=== PATIENT | male | born 1995 | race Caucasian/White ===

== ENCOUNTER 2018-04-19 22:03 | Emergency (ER) | payer SELFPAY ==
[~2018-04-19] VITALS: Ht 177.8 cm; Wt 72.0 kg
[2018-04-19] MEDS ORDERED: MORPHINE SULFATE 4 MG/ML CPJ (NOT FOR IM USE) IV ONE (22:30)
[2018-04-19] MEDS ORDERED: ONDANSETRON HCL 4MG/2ML VIAL IV ONE (22:30)
[2018-04-19] MEDS ORDERED: TETANUS, DIPHTHERIA, PERTUSSIS VAC/PF 0.5ML (>7YR OLD) IM ONE (22:30)
[2018-04-19] MEDS ORDERED: BACITRACIN ZINC OINT UDPKT TOP ONE (22:30)
[2018-04-19] MEDS ORDERED: LIDOCAINE HCL 1% 20ML VIAL (Pyxis) INJ MC ONE (22:30)
[2018-04-19] MEDS ORDERED: CEFAZOLIN 1000MG PREMIX 50 ML IV ONE (22:30)
[2018-04-19] MEDS ORDERED: LIDOCAINE HCL/PF 1% 10 MG/ML 5ML VIAL IJ SCH (22:38)
[2018-04-20] MEDS ORDERED: HYDROCODONE/ACETAMINOPHEN 5/325MG TABLET PO ONE (00:30)
[2018-04-20 00:55] VITALS: BP 128/61
== END 2018-04-20 00:55 | disposition home or self-care (01) ==
LOC: ER 22:03
DX: S61.240A Puncture wound with foreign body of right index finger without damage to nail, initial encounter (principal); W45.0XXA Nail entering through skin, initial encounter; Y93.89 Activity, other specified; Y92.89 Other specified places as the place of occurrence of the external cause; Y99.8 Other external cause status
CPT/HCPCS: 64450; 73130; 90471; 90715; 96365; 96375; 99284; J0690; J2270; J2405; J3490; Z7610; 10120